=== PATIENT | male | born 1965 | race Hispanic/Latino ===

== ENCOUNTER 2020-12-18 13:09 | Emergency (ER) | payer SELFPAY ==
[2020-12-18 15:09] LABS: Urine Blood 3+ (NEG); Urine Glucose NEGATIVE (NEG); Urine Protein 2+ (NEG); Urine pH 5.5 (5.0-7.0)
[2020-12-18 15:40] LABS: Absolute Lymphocytes (CBC) 0.7 K/uL (0.7-4.9); Basophils % 0.4 % (0-1.3); Hematocrit 45.6 % (39.6-49.0); Lymphocytes % 5.3 % (15.3-44.8); MPV 9.7 fL (7.6-11.3); RBC Red Blood Cell Count 5.16 M/uL (4.33-5.43)
[2020-12-18] MEDS ORDERED: KETOROLAC 30 MG/ML INJ ONE (15:45)
[2020-12-18] MEDS ORDERED: NA CHLORIDE 0.9% 1,000 ML ONE (15:45)
[2020-12-18] MEDS ORDERED: MORPHINE 4 MG/ML SYR ONE (15:45)
[2020-12-18] MEDS ORDERED: CEFTRIAXONE/SWI 1gm 1 GM/10 ML SYR ONE (15:45)
[2020-12-18] MEDS ORDERED: ONDANSETRON 4 MG/2 ML VIAL ONE (15:45)
[2020-12-18 15:54] LABS: ALT/SGPT 30 U/L (12-78); AST/SGOT 14 U/L (15-37); Albumin 3.9 g/dL (3.4-5.0); Alkaline Phosphatase 110 U/L (45-117); BUN Blood Urea Nitrogen 18 mg/dL (7-18); Bicarbonate 25 mmol/L (21-32); Bilirubin Direct < 0.1 mg/dL (0-0.2); Bilirubin Total 0.3 mg/dL (0.2-1.0); Glucose Level 124 mg/dL (74-106); Lipase 278 U/L (73-393); Potassium 3.9 mmol/L (3.5-5.1); Protein, Total 7.8 g/dL (6.4-8.2); Sodium Level 139 mmol/L (136-145)
--- NOTE | 2020-12-18 16:01 | RAD REPORT ---
EXAM DESCRIPTION: CT - Stone Protocol - 12/18/2020 3:48 pm CLINICAL HISTORY: Flank pain. KIDNEY STONES COMPARISON: No comparisons TECHNIQUE: Axial images were obtained without oral or IV contrast. Lack of contrast limits solid org an and vascular assessment. The [id number] spans the entirety of the system partially obscuring uppermost abdomen and lung bases. Coronal reformatted images were obtained and reviewed. All CT scans are performed using dose optimization technique as appropriate and may include automated exposure control or mA/KV adjustment according to patient size. FINDINGS: The lower lung gandara are clear. Imaged portions of the liver and spleen show no suspicious findings on non-contrast imaging. The panc reas and adrenal glands are normal. No pathologic lymphadenopathy in the abdomen or pelvis. 3 mm stone is present at the left UVJ with mild left hydronephrosis and hydroureter. No right-sided u rinary stone or obstructive uropathy. No bowel obstruction, free air, free fluid or abscess. Normal appendix noted. No significant bony abnormality. IMPRESSION: 3 mm stone is present at the left UVJ with mild left hydronephrosis.
[2020-12-18 16:23] LABS: Urine Amorphous Sediment 4+ /HPF (NONE SEEN); Urine Bacteria 20-50 /HPF (NONE SEEN); Urine RBC 20-50 /HPF (NONE SEEN)
[2020-12-18 16:30] LABS: Blood Morphology Comment NOT SEEN (NOT SEEN); Platelet Estimate ADEQ; White Blood Cell Scan OK (OK)
--- NOTE | 2020-12-18 16:44 | ER ---
Nurse's Notes [facility] Name: uQentin Angela Age: 55 yrs Sex: Male : 1965 Arrival Date: 12/18/2020 Time: 13:12 Bed 16 Private MD: Diagnosis: Hydronephrosis with renal and ureteral calculous obstruction-3 mm left uvj Presentation: 12/18 13:38 Chief complaint: Patient states: Left lower back pain radiating to the LLQ started this ca1 morning. Reports burning with urination x 6 days. Coronavirus screen: Client denies travel out of the [place] in the last 14 days. At this time, the client does not indicate any symptoms associated with coronavirus-19. Ebola Screen: Patient negative for fever greater than or equal to 101.5 degrees Fahrenheit, and additional compatible Ebola Virus Disease symptoms Patient denies exposure to infectious person. Patient denies travel to an Ebola-affected area in the 21 days before illness onset. No symptoms or risks identified at this time. Initial Sepsis Screen: Does the patient meet any 2 criteria? No. Patient's initial sepsis screen is negative. Does the patient have a suspected source of infection? No. Patient's initial sepsis screen is negative. Risk Assessment: Do you want to hurt yourself or someone else? Patient reports no desire to harm self or others. Onset of symptoms was December 18, 2020. 13:38 Method Of Arrival: Ambulatory ca1 13:38 Acuity: WINSTON 3 ca1 Historical: - Allergies: 13:40 No Known Allergies; ca1 - PMHx: 13:40 Hypertension; ca1 - PSHx: 13:40 None; ca1 - Immunization history:: Flu vaccine is not up to date. - Social history:: Smoking status: Patient denies any tobacco usage or history of. - Family history:: not pertinent. Screenin:39 Abuse screen: Denies threats or abuse. Nutritional screening: No deficits noted. jd3 Tuberculosis screening: No symptoms or risk factors identified. Fall Risk Ambulatory Aid- None/Bed Rest/Nurse Assist (0 pts). Gait- Normal/Bed Rest/Wheelchair (0 pts) Mental Status- Oriented to own ability (0 pts). Total Eaton Fall Scale indicates No Risk (0-24 pts). Assessment: 15:38 General: Appears in no apparent distress. uncomfortable, Behavior is calm, cooperative, jd3 appropriate for age. Pain: Complains of pain in low back area and mid back area Quality of pain is described as aching, sharp, shooting. Neuro: Level of Consciousness is awake, alert, obeys commands, Oriented to person, place, time, situation. Cardiovascular: Denies chest pain, Capillary refill < 3 seconds Patient's skin is warm and dry. Respiratory: Airway is patent Respiratory effort is even, unlabored, Respiratory pattern is regular, symmetrical, Denies cough, shortness of breath. GI: No signs and/or symptoms were reported involving the gastrointestinal system. : Reports pain in lower back with urination, urinary frequency. EENT: No signs and/or symptoms were reported regarding the EENT system. Derm: Skin is intact, Skin is dry, Skin is normal, Skin temperature is warm. Musculoskeletal: Circulation, motion, and sensation intact. Range of motion: intact in all extremities. Vital Signs: 13:38 BP 129 / 86; Pulse 73; Resp 16 S; Temp 97.8(TE); Pulse Ox 100% on R/A; Weight 68.04 kg ca1 (R); Height 5 ft. 8 in. (172.72 cm) (R); Pain 10/10; 13:38 Body Mass Index 22.81 (68.04 kg, 172.72 cm) ca1 ED Course: 13:12 Patient arrived in ED. am2 13:40 Triage completed. ca1 13:40 Arm band placed on right wrist. ca1 14:44 Ki Araujo MD is Attending Physician. caitlin 14:59 Jesus Mcfarlane RN is Primary Nurse. jd3 15:26 Patient has correct armband on for positive identification. Bed in low position. Call [facility] light in reach. Pulse ox on. NIBP on. 15:26 Urine Dipstick--Ancillary (enter results) Sent. 5 15:26 Urine Microscopic Only Sent. 5 15:26 Urine collected: clean catch specimen, sediment noted. mh5 15:35 Inserted saline lock: 20 gauge in left antecubital area, using aseptic technique. Blood jd3 collected. 16:42 Anam Christensen MD is Referral Physician. caitlin 17:18 No provider procedures requiring assistance completed. IV discontinued, intact, jd3 bleeding controlled, No redness/swelling at site. Pressure dressing applied. Administered Medications: 15:35 Drug: NS 0.9% 1000 ml Route: IV; Rate: 1 bolus; Site: left antecubital; jd3 16:30 Follow up: Response: No adverse reaction; IV Status: Completed infusion jd3 15:36 Drug: Rocephin 1 grams Route: IV; Rate: per protocol; Site: left antecubital; jd3 16:30 Follow up: Response: No adverse reaction; IV Status: Completed infusion jd3 15:36 Drug: TORadol 30 mg Route: IVP; Site: left antecubital; jd3 16:30 Follow up: Response: No adverse reaction jd3 15:37 Drug: morphine 4 mg Route: IVP; Site: left antecubital; jd3 16:30 Follow up: Response: No adverse reaction; RASS: Alert and Calm (0) jd3 15:38 Drug: Zofran (Ondansetron) 4 mg Route: IVP; Site: left antecubital; jd3 16:30 Follow up: Response: No adverse reaction jd3 17:08 Drug: Flomax 0.4 mg Route: PO; jd3 17:18 Follow up: Response: Medication administered at discharge. jd3 17:08 Drug: Cipro 500 mg Route: PO; jd3 17:18 Follow up: Response: No adverse reaction; Medication administered at discharge. jd3 17:08 Drug: [place] (7.5 mg-325 mg) 1 tabs Route: PO; jd3 17:18 Follow up: Response: Medication administered at discharge.; RASS: Alert and Calm (0) jd3 Outcome: 16:43 Discharge ordered by MD. tucker 17:15 Discharged to home ambulatory, with family. jd3 17:15 Condition: stable 17:15 Discharge instructions given to patient, Instructed on discharge instructions, follow up and referral plans. medication usage, Demonstrated understanding of instructions, follow-up care, medications, Prescriptions given X 3. 17:18 Patient left the ED. jd3 Signatures: Ki Araujo MD MD cha Martinez, Maria [facility] Kathy Mishra am2 Jesus Mcfarlane RN RN jd3 Yoli Paredes RN RN ca1 Corrections: (The following items were deleted from the chart) 19:27 17:30 Response: No adverse reaction jd3 jd3
--- NOTE | 2020-12-18 16:44 | EDPHYS ---
Physician Documentation [facility] Name: Quentin Angela Age: 55 yrs Sex: Male : 1965 Arrival Date: 12/18/2020 Time: 13:12 Bed 16 Private MD: ED Physician Ki Araujo HPI: 12/18 15:06 This 55 yrs old Male presents to ER via Ambulatory with complaints of Back caitlin Pain. 15:06 The patient presents with pain and decreased range of motion, and tenderness. The caitlin symptoms are located in the left mid back. Onset: The symptoms/episode began/occurred 1 day(s) ago. The pain radiates to the left low back and left mid back. Associated signs and symptoms: The patient has no apparent associated signs or symptoms. The problem was sustained from unknown cause. Modifying factors: The patient symptoms are alleviated by heat application, the patient symptoms are aggravated by nothing. Severity of symptoms: At their worst the symptoms were moderate, severe, in the emergency department the symptoms are unchanged. The patient has not experienced similar symptoms in the past. Historical: - Allergies: 13:40 No Known Allergies; ca1 - PMHx: 13:40 Hypertension; ca1 - PSHx: 13:40 None; ca1 - Immunization history:: Flu vaccine is not up to date. - Social history:: Smoking status: Patient denies any tobacco usage or history of. - Family history:: not pertinent. ROS: 15:06 Constitutional: Negative for fever, chills, and weight loss, Eyes: Negative for injury, caitlin pain, redness, and discharge, ENT: Negative for injury, pain, and discharge, Neck: Negative for injury, pain, and swelling, Cardiovascular: Negative for chest pain, palpitations, and edema, Respiratory: Negative for shortness of breath, cough, wheezing, and pleuritic chest pain, Abdomen/GI: Negative for abdominal pain, nausea, vomiting, diarrhea, and constipation, : Negative for injury, bleeding, discharge, and swelling, MS/Extremity: Negative for injury and deformity, Skin: Negative for injury, rash, and discoloration, Neuro: Negative for headache, weakness, numbness, tingling, and seizure, Psych: Negative for depression, anxiety, suicide ideation, homicidal ideation, and hallucinations, Allergy/Immunology: Negative for hives, rash, and allergies, Endocrine: Negative for neck swelling, polydipsia, polyuria, polyphagia, and marked weight changes, Hematologic/Lymphatic: Negative for swollen nodes, abnormal bleeding, and unusual bruising. 15:06 Back: Positive for pain at rest, flank pain, on the left. Exam: 15:06 Constitutional: This is a well developed, well nourished patient who is awake, alert, caitlin and in no acute distress. Head/Face: Normocephalic, atraumatic. Eyes: Pupils equal round and reactive to light, extra-ocular motions intact. Lids and lashes normal. Conjunctiva and sclera are non-icteric and not injected. Cornea within normal limits. Periorbital areas with no swelling, redness, or edema. ENT: Nares patent. No nasal discharge, no septal abnormalities noted. Tympanic membranes are normal and external auditory canals are clear. Oropharynx with no redness, swelling, or masses, exudates, or evidence of obstruction, uvula midline. Mucous membranes moist. Neck: Trachea midline, no thyromegaly or masses palpated, and no cervical lymphadenopathy. Supple, full range of motion without nuchal rigidity, or vertebral point tenderness. No Meningismus. Chest/axilla: Normal chest wall appearance and motion. Nontender with no deformity. No lesions are appreciated. Cardiovascular: Regular rate and rhythm with a normal S1 and S2. No gallops, murmurs, or rubs. Normal PMI, no JVD. No pulse deficits. Respiratory: Lungs have equal breath sounds bilaterally, clear to auscultation and percussion. No rales, rhonchi or wheezes noted. No increased work of breathing, no retractions or nasal flaring. Abdomen/GI: Soft, non-tender, with normal bowel sounds. No distension or tympany. No guarding or rebound. No evidence of tenderness throughout. Male : Normal genitalia with no discharge or lesions. Skin: Warm, dry with normal turgor. Normal color with no rashes, no lesions, and no evidence of cellulitis. MS/ Extremity: Pulses equal, no cyanosis. Neurovascular intact. Full, normal range of motion. Neuro: Awake and alert, GCS 15, oriented to person, place, time, and situation. Cranial nerves II-XII grossly intact. Motor strength 5/5 in all extremities. Sensory grossly intact. Cerebellar exam normal. Normal gait. Psych: Awake, alert, with orientation to person, place and time. Behavior, mood, and affect are within normal limits. 15:06 Back: pain, that is mild, that is moderate, ROM is normal, normal spinal alignment noted, CVA tenderness, that is moderate, is noted on the left, muscle spasm, is not present. Vital Signs: 13:38 BP 129 / 86; Pulse 73; Resp 16 S; Temp 97.8(TE); Pulse Ox 100% on R/A; Weight 68.04 kg ca1 (R); Height 5 ft. 8 in. (172.72 cm) (R); Pain 10/10; 13:38 Body Mass Index 22.81 (68.04 kg, 172.72 cm) ca1 MDM: 14:44 Patient medically screened. [facility] 15:09 Differential diagnosis: Hydronephrosis Pyelonephritis Renal Infarction ruptured disc, caitlin Ureterolithiasis. Data reviewed: vital signs, nurses notes, lab test result(s), radiologic studies, CT scan. Data interpreted: patient monitor: rate is 73 beats/min, rhythm is regular, Pulse oximetry: on room air is 100 %. Counseling: I had a detailed discussion with the patient and/or guardian regarding: the historical points, exam findings, and any diagnostic results supporting the discharge/admit diagnosis, lab results, radiology results, the need for outpatient follow up, for definitive care, a urologist. 12/18 14:01 Order name: Urine Microscopic Only; Complete Time: 16:41 12/18 15:05 Order name: Basic Metabolic Panel; Complete Time: 16:41 caitlin 12/18 15:05 Order name: CBC with Diff; Complete Time: 16:41 [facility] 12/18 15:05 Order name: Hepatic Function; Complete Time: 16:41 [facility] 12/18 15:05 Order name: Lipase; Complete Time: 16:41 [facility] 12/18 15:06 Order name: Urine Dipstick--Ancillary (enter results) 12/18 15:05 Order name: CT Stone Protocol [facility] 12/18 15:09 Order name: Urine Dipstick-Ancillary; Complete Time: 16:41 EDMT 12/18 16:02 Order name: CT; Complete Time: 16:41 EDMT 12/18 16:31 Order name: CBC Smear Scan; Complete Time: 16:41 EDMT 12/18 14:01 Order name: Urine Dipstick-Ancillary (obtain specimen); Complete Time: 15:00 kb 12/18 15:05 Order name: IV Saline Lock; Complete Time: 15:25 caitlin 12/18 15:05 Order name: Labs collected and sent; Complete Time: 15:25 caitlin Administered Medications: 15:35 Drug: NS 0.9% 1000 ml Route: IV; Rate: 1 bolus; Site: left antecubital; jd3 16:30 Follow up: Response: No adverse reaction; IV Status: Completed infusion jd3 15:36 Drug: Rocephin 1 grams Route: IV; Rate: per protocol; Site: left antecubital; jd3 16:30 Follow up: Response: No adverse reaction; IV Status: Completed infusion jd3 15:36 Drug: TORadol 30 mg Route: IVP; Site: left antecubital; jd3 16:30 Follow up: Response: No adverse reaction jd3 15:37 Drug: morphine 4 mg Route: IVP; Site: left antecubital; jd3 16:30 Follow up: Response: No adverse reaction; RASS: Alert and Calm (0) jd3 15:38 Drug: Zofran (Ondansetron) 4 mg Route: IVP; Site: left antecubital; jd3 16:30 Follow up: Response: No adverse reaction jd3 17:08 Drug: Flomax 0.4 mg Route: PO; jd3 17:18 Follow up: Response: Medication administered at discharge. jd3 17:08 Drug: Cipro 500 mg Route: PO; jd3 17:18 Follow up: Response: No adverse reaction; Medication administered at discharge. jd3 17:08 Drug: [place] (7.5 mg-325 mg) 1 tabs Route: PO; jd3 17:18 Follow up: Response: Medication administered at discharge.; RASS: Alert and Calm (0) jd3 Disposition: 12/18/20 16:43 Discharged to Home. Impression: Hydronephrosis with renal and ureteral calculous obstruction - 3 mm left uvj. - Condition is Stable. - Discharge Instructions: Kidney Stones, Kidney Stones, [id number], Hydronephrosis, Dietary Guidelines to Help Prevent Kidney Stones. - Prescriptions for Tylenol- Codeine #3 300-30 mg Oral Tablet - take 2 tablets by ORAL route every 4-6 hours As needed; 20 tablet. Flomax 0.4 mg Oral Capsule, Sust. Release 24 hr - take 1 capsule by ORAL route once daily 1/2 hour following the same meal each day; 30 capsule. Cipro 500 mg Oral Tablet - take 1 tablet by ORAL route every 12 hours for 7 days; 14 tablet. - Medication Reconciliation Form, Thank You Letter, Antibiotic Education, Prescription Opioid Use form. - Follow up: Private Physician; When: 2 - 3 days; Reason: Recheck today's complaints, Continuance of care, Re-evaluation by your physician. Follow up: Anam Christensen MD; When: 2 - 3 days; Reason: Recheck today's complaints, Continuance of care, Re-evaluation by your physician. - Problem is new. - Symptoms have improved. Signatures: Dispatcher [employer] EDMT Brooke Funk, TIRE INSTALLER-C TIRE INSTALLER-Ckb Ki Araujo MD MD cha Davies, Jonathon, RN RN jd3 Yoli Paredes RN RN ca1 Corrections: (The following items were deleted from the chart) 17:18 16:43 12/18/2020 16:43 Discharged to Home. Impression: Hydronephrosis with renal and jd3 ureteral calculous obstruction - 3 mm left uvj. Condition is Stable. Forms are Medication Reconciliation Form, Thank You Letter, Antibiotic Education, Prescription Opioid Use. Follow up: Private Physician; When: 2 - 3 days; Reason: Recheck today's complaints, Continuance of care, Re-evaluation by your physician. Follow up: Anam Christensen; When: 2 - 3 days; Reason: Recheck today's complaints, Continuance of care, Re-evaluation by your physician. Problem is new. Symptoms have improved. caitlin
[2020-12-18] MEDS ORDERED: TAMSULOSIN 0.4 MG SR CAP ONE (17:05)
[2020-12-18] MEDS ORDERED: CIPROFLOXACIN HCL 500 MG TAB ONE (17:19)
[2020-12-18] MEDS ORDERED: HYDROCODONE/APAP 7.5/325 MG TAB ONE (17:19)
[2020-12-18 18:47] VITALS: BP 129/86; TEMP 97.8; O2SAT 100
== END 2020-12-18 17:18 | disposition home or self-care (01) ==
LOC: ER 13:09
DX: N13.2 Hydronephrosis with renal and ureteral calculous obstruction (principal); I10 Essential (primary) hypertension
CPT/HCPCS: 36415; 74176; 76377; 80048; 80076; 81003; 81015; 83690; 85025; 87086; 87088; 96365; 96375; 99284; J0696; J2405; J7030